=== PATIENT | male | born 1995 | race African-American/Black ===

== ENCOUNTER 2018-04-15 10:45 | Emergency (ER) | payer OTHER ==
[~2018-04-15] VITALS: Ht 172.7 cm; Wt 61.7 kg
[2018-04-15 10:49] VITALS: Ht 172.7 cm; Wt 61.7 kg
[2018-04-15 11:44] LABS: BASOPHIL % 0.5 % (0-2); PLATELET COUNT 242 x10^3mcL (130-400); RED CELL DISTRIBUTION WIDTH 13.9 % (11.5-14.5)
[2018-04-15 11:46] LABS: microscopic required? NO
[2018-04-15 11:47] LABS: CALCIUM 9.4 mg/dL (8.5-10.1); CARBON DIOXIDE 20.4 mmol/L (21-32); CHLORIDE SERUM 98 mmol/L (98-107); CREATININE SERUM 1.4 mg/dL (0.7-1.3); GFR1 > 60 mL/min; GLUCOSE SERUM 84 mg/dL (74-106); POTASSIUM SERUM 3.8 mmol/L (3.5-5.1); SODIUM SERUM 134 mmol/L (136-145)
[2018-04-15 11:51] LABS: ALBUMIN 4.4 g/dL (3.4-5.0); ALKALINE PHOSPHATASE 86 U/L (46-116); ALT/SGPT 33 U/L (16-63); AST/SGOT 20 U/L (15-37); BILIRUBIN TOTAL 0.73 mg/dL (0.20-1.00); LIPASE 124 IU/L (73-393)
[2018-04-15 11:52] LABS: TOTAL PROTEIN, SERUM 8.4 g/dL (6.4-8.2)
[2018-04-15 11:54] LABS: urine erythrocyte NEGATIVE (NEGATIVE)
[2018-04-15 12:04] LABS: AMPHETAMINE QUAL UR NONE DETECTED (See below)
[2018-04-15 12:50] VITALS: BP 142/69
== END 2018-04-15 14:18 | disposition home or self-care (01) ==
LOC: ED 10:45
PROVIDERS: Emergency Medicine
DX: R10.33 Periumbilical pain (principal); R11.10 Vomiting, unspecified; F12.988 Cannabis use, unspecified with other cannabis-induced disorder
CPT/HCPCS: 87046; 87046-59; J1885; J2060; J7030

== ENCOUNTER 2018-04-16 12:31 | Emergency (ER) | payer OTHER ==
[~2018-04-16] VITALS: Ht 172.7 cm; Wt 59.0 kg
[2018-04-16 12:38] VITALS: Ht 172.7 cm; Wt 59.0 kg
[2018-04-16 12:54] VITALS: BP 133/69
[2018-04-16 13:18] LABS: CALCIUM 9.7 mg/dL (8.5-10.1); CARBON DIOXIDE 21.7 mmol/L (21-32); CHLORIDE SERUM 98 mmol/L (98-107); CREATININE SERUM 1.3 mg/dL (0.7-1.3); GFR1 > 60 mL/min; GLUCOSE SERUM 92 mg/dL (74-106); POTASSIUM SERUM 3.7 mmol/L (3.5-5.1); SODIUM SERUM 132 mmol/L (136-145)
[2018-04-16 13:22] LABS: ALBUMIN 4.5 g/dL (3.4-5.0); ALKALINE PHOSPHATASE 85 U/L (46-116); ALT/SGPT 29 U/L (16-63); AST/SGOT 20 U/L (15-37); BILIRUBIN TOTAL 0.7 mg/dL (0.20-1.00); LIPASE 117 IU/L (73-393); TOTAL PROTEIN, SERUM 7.8 g/dL (6.4-8.2)
[2018-04-16 13:49] LABS: BASOPHIL % 0.5 % (0-2); PLATELET COUNT 237 x10^3mcL (130-400); RED CELL DISTRIBUTION WIDTH 14.2 % (11.5-14.5)
== END 2018-04-16 13:49 | disposition left against medical advice (07) ==
LOC: ED 12:31
PROVIDERS: Emergency Medicine
DX: F12.188 Cannabis abuse with other cannabis-induced disorder (principal)
CPT/HCPCS: J1630; J2405